=== PATIENT | female | born 1935 | race Caucasian/White ===

== ENCOUNTER 2021-09-13 13:33 | Outpatient (CLI) | payer MEDICARE, SELFPAY ==
[2021-09-13 13:48] LABS: Hematocrit 41.1 % (35.0-42.0); Hemoglobin 13.9 g/dL (11.7-13.8); Mean Corpuscular HGB Conc 33.8 g/dL (32.0-36.0); Mean Corpuscular Volume 88.8 fL (78.0-102.0); Platelet Count Result 260 K/mm3 (150-420); Red Blood Count 4.63 M/mm3 (4.20-5.40); Red Cell Distribution Width 12.5 % (11.6-14.4); White Blood Count 10.9 K/mm3 (4.8-10.8)
[2021-09-13 15:56] LABS: Alanine Aminotransferase 40 U/L (14-59); Alkaline Phosphatase 67 U/L (46-116); Anion Gap 10 mmol/L (8-16); Aspartate Amino Transferase 32 U/L (15-37); Bilirubin,Total 0.6 mg/dL (0.00-1.00); Blood Urea Nitrogen 13 mg/dL (7-18); Calcium 9.5 mg/dL (8.5-10.1); Carbon Dioxide 26 mmol/L (21-32); Chloride 104 mmol/L (98-108); Estimated Glomerular Filt Rate > 60; Glucose 108 mg/dL (70-99); NT Pro B Type Natriuretic Pept 199 pg/mL (0-450); Osmolality Calculated 291 mOsm/kg (285-295); Potassium 3.8 mmol/L (3.5-5.1); Sodium 140 mmol/L (136-145); Total Protein 7.4 g/dL (6.4-8.2); Vitamin B12 1057 pg/mL (193-986)
[2021-09-13 15:59] LABS: Folic Acid > 20.0 ng/mL (8.6->20)
== END 2021-09-13 13:34 | disposition home or self-care (01) ==
LOC: CHSLAB 13:37
PROVIDERS: PCP Family Medicine; Visit Provider Family Medicine
DX: I50.9 Heart failure, unspecified (principal); E11.9 Type 2 diabetes mellitus without complications; G62.9 Polyneuropathy, unspecified; E53.8 Deficiency of other specified B group vitamins
CPT/HCPCS: 36415; 80053; 82607; 82746; 83880; 84443; 85027

== ENCOUNTER 2021-09-19 14:34 | Outpatient (CLI) | payer MEDICARE, SELFPAY ==
--- NOTE | ~2021-09-19 | DEXA_ITS ---
Bone Density Report Name: FELIX NEAL Age: 85 Sex: Female Ethnicity: White Date of : 1935 Indication: postmenopausal; screening for osteoporosis; height loss; Referring Provider: Donovan Barber Study: Bone densitometry was performed. Exam Date: September 19, 2021 Accession number: [id number] Bone Density: Region BMD T-score Z-score Classification AP Spine(L1-L4) 0.949 -0.9 1.9 Normal Femoral Neck (Left) 0.643 -1.9 0.6 Osteopenia Total Hip (Left) 0.804 -1.1 1.1 Osteopenia Femoral Neck (Right) 0.660 -1.7 0.8 Osteopenia Total Hip (Right) 0.786 -1.3 1.0 Osteopenia Femoral Neck Mean 0.652 -1.8 0.7 Osteopenia Total Hip Mean 0.795 -1.2 1.1 Osteopenia World Health Organization criteria for BMD impression classify patients as: Normal (T-score at or above -1.0), Osteopenia (T-score between -1.0 and -2.5), or Osteoporosis (T-score at or below -2.5). 10-year Fracture Risk(1): Major Osteoporotic Fracture 15% Hip Fracture 4.3% Reported Risk Factors: [place] (), Neck BMD=0.643, BMI=27.8 (1) FRAX(R) Version 3.08. Fracture probability calculated for an untreated patient. Fracture probability may be lower if the patient has received treatment. Clinical Information Provided by Patient: Has used the following medications: Calcium Patient maximum height was 66 Menopause Age: 52 Drinks caffeinated beverages Onset of menses at age 15 Number of children 4 Impression: The patient has low bone mass, based on the Left Femoral Neck T-score. Discussion: BONE DENSITY IS LOW AT ONE OR MORE SKELETAL SITES. This patient's lowest T-score is low at one or more skeletal sites. It meets the World Health Organization's (WHO) criteria for ?low bone mass? (T-score between -1.0 and -2.5). The patient's 10-year risk of fracture as calculated by FRAX is less than the threshold where pharmacological therapy is recommended by the National Osteoporosis Foundation (NOF). However, all treatment decisions require clinical judgment and consideration of individual patient factors, including patient preferences, comorbidities, previous drug use, risk factors not captured in the FRAX model (e.g., frailty, falls, vitamin D deficiency, increased bone turnover, interval significant decline in bone density) and possible under or overestimation of fracture risk by FRAX. The patient should follow a healthful lifestyle (good nutrition with adequate calcium and vitamin D, and appropriate weight-bearing exercise). Follow-Up: Consider repeating this study in 2 to 3 years to reassess this patient's status, or sooner if there is some new clinical indication. Reported by: Dr. Rafael Alarcon on 09/19/2021 3:09:00 PM. Reviewed, dictated and finalize
== END 2021-09-19 14:35 | disposition home or self-care (01) ==
LOC: CHSIMG 14:36
PROVIDERS: PCP Family Medicine; Visit Provider Family Medicine
DX: Z78.0 Asymptomatic menopausal state (principal)
CPT/HCPCS: 77080

== ENCOUNTER 2021-10-07 14:17 | Outpatient (CLI) | payer MEDICARE, SELFPAY ==
--- NOTE | 2021-10-07 14:23 | ECHO_ITS ---
Patient Info Name: Katie Tolbert Age: 85 years : 1935 Gender: Female Ht: 64 in Wt: 164 lbs BSA: 1.85 m2 HR: 97 bpm BP: 153 / 62 mmHg Heart Rhythm: Sinus Rhythm Technical Quality: Fair Exam Date: 10/07/2021 2:10 PM Exam Location: [facility] Patient Status: Outpatient Admit Date: 10/07/2021 Staff Ordering Physician: Donovan Barber DO Pile Driver Operator Barge Mounted: Diana Dupree RDCS Attending Provider: Donovan Barber DO Referring Physician: Sunil MAJANO; Exam Type: CA echo doppler color flow Study Info Indications - heart failure Complete two-dimensional, color flow and Doppler transthoracic echocardiogram is performed. Summary 1. Complete two-dimensional, color flow and Doppler transthoracic echocardiogram is performed. 2. Left ventricular chamber dimension is normal. 3. Left ventricular systolic function is normal, estimated at 65-70%. 4. The left ventricular diastolic function is grade I diastolic dysfunction. 5. E/e' 13 is mildly elevated. 6. There is moderate aortic valve sclerosis. 7. The mitral valve has moderately calcified annulus. 8. No pulmonary hypertension, estimated pulmonary arterial systolic pressure is 31 mmHg. Left Ventricle E/e' 13 is mildly elevated. Left ventricular chamber dimension is normal. Left ventricular systolic function is normal, estimated at 65-70%. The left ventricular diastolic function is grade I diastolic dysfunction. Right Ventricle Right ventricular chamber dimension is normal. Right ventricular systolic function is normal. Left Atria Left atrial chamber dimension is normal. Right Atria Right atrial chamber dimension is normal. Aortic Valve The aortic valve is trileaflet. There is moderate aortic valve sclerosis. There is no aortic valve stenosis. There is no aortic valve regurgitation. Pulmonic Valve There is no pulmonic regurgitation. Mitral Valve The mitral valve has moderately calcified annulus. There is no mitral valve stenosis. There is no mitral valve regurgitation. Tricuspid Valve There is no tricuspid valve regurgitation. No pulmonary hypertension, estimated pulmonary arterial systolic pressure is 31 mmHg. Pericardium/Pleural There is no pericardial effusion. Inferior Vena Cava Normal inferior vena cava with >50% collapse upon inspiration consistent with normal right atrial pressure, 5 mmHg. Aorta The aortic root size at the sinus of Valsalva is normal. Left Ventricular Outflow Tract Name Value Normal LVOT 2D LVOT Diameter 2.0 cm LVOT Doppler LVOT Peak Velocity 87 cm/s LVOT Peak Gradient 3 mmHg LVOT Mean Gradient 2 mmHg LVOT VTI 17 cm LVOT VTI/AV VTI Ratio 0.8 LVOT Stroke Volume 51 ml Pulmonic Valve Name Value Normal RVOT Doppler
== END 2021-10-07 14:18 | disposition home or self-care (01) ==
LOC: CHSIMG 14:19
PROVIDERS: PCP Family Medicine; Visit Provider Family Medicine
DX: I50.9 Heart failure, unspecified (principal); I35.8 Other nonrheumatic aortic valve disorders
CPT/HCPCS: 93306